=== PATIENT | male | born 1960 | race Caucasian/White ===

== ENCOUNTER 2023-03-16 14:39 | Emergency (ER) | payer BC, MEDICARE ==
[2023-03-16 15:00] VITALS: TEMP 97.7
[2023-03-16 15:41] LABS: Absolute Neutrophil Ct (ANC) 5.16 x10^3/uL (1.4-6.9); BASOPHIL % 0.3 % (0.0-0.4); Basophil (Absolute #) 0.02 x10^3/uL (0-0.4); Eosinophil % 3.3 % (0.00-5.0); Eosinophil (Absolute #) 0.26 x10^3/uL (0-0.5); Hematocrit 41.4 % (42-50); IMMATURE GRAN # 0.02 x10^3u/L (0.00-0.03); IMMATURE GRAN % 0.3 % (0.00-0.4); Lymphocyte (Absolute #) 1.76 x10^3/uL (1.0-4.6); Lymphocytes % 22.6 % (24.0-44.0); Mean Cell Volume 83.8 fL (78-100); Mean Corpuscular Hemoglobin 24.3 pg (26-32); Monocyte (Absolute #) 0.58 x10^3/uL (0.0-1.3); Monocytes % 7.4 % (0.0-12.0); Neutrophil % 66.1 % (36.0-66.0); Platelet Count 313 x10^3/uL (150-450); Red Blood Count 4.94 x10^6/uL (4.1-5.6); Red Cell Distribution Width 24.1 % (11.5-14.0); White Blood Count 7.8 x10^3/uL (4.0-10.5)
[2023-03-16 15:49] LABS: Appearance Clear (Clear); Bacteria None Seen /HPF (None Seen); Bilirubin Negative (Negative); Blood Negative (Negative); Epithelial Cells None Seen /HPF (None Seen); Glucose, Urine Negative (Negative); Hyaline Casts NONE SEEN /LPF (0-2); Ketones Negative (Negative); Leukocyte Esterase Negative (Negative); Nitrite Negative (Negative); Protein,Urine Dip Negative (Negative); RBC 0-2 /HPF (0-5); Specific Gravity <=1.005 (1.005-1.030); Urobilinogen 0.2 mg/dL (0.2); WBC 0-2 /HPF (0-5)
[2023-03-16 15:51] LABS: ADD URINE CULTURE? NO (NO)
[2023-03-16 15:53] LABS: ALBUMIN 4.3 g/dL (3.5-5.0); ALKALINE PHOSPHATASE 108 U/L (38-126); ANION GAP 15.8 MEQ/L (5-15); BLOOD UREA NITROGEN 11 mg/dL (9-20); CHLORIDE 102 mmol/L (98-107); Calcium 8.8 mg/dL (8.4-10.2); Carbon Dioxide 26 mmol/L (22-30); Creatinine 1 0.86 mg/dL (0.66-1.25); EST GLOMERULAR FILTRATION RATE > 60.0 ML/MIN; Glucose 131 mg/dL (74-106); Potassium 3.5 mmol/L (3.5-5.1); SGOT/AST 30 U/L (17-59); SGPT/ALT 39 U/L (0-50); SODIUM 140 mmol/L (137-145); Total Protein 6.9 g/dL (6.3-8.2)
[2023-03-16 15:54] LABS: INR 1.03 (0.8-3.0); PROTIME 11.2 SECONDS (9.4-12.5); PTT 25.3 SECONDS (25.1-36.5)
[2023-03-16 16:04] LABS: Slide Review 1 YES
[2023-03-16 16:11] LABS: ABO TYPING A; Antibody Screen NEGATIVE (NEGATIVE); RH TYPING POSITIVE
--- NOTE | 2023-03-16 16:41 | ERPHSYRPT ---
- History of Present Illness Time Seen by Provider: 03/16/23 15:00 Historian: patient, family Exam Limitations: no limitations Patient Subjective Stated Complaint: PT states "I had my followup for my upper and lower GI surgery this morning and they said everything was good and I went to the bar for a couple of beers and a burger and I started to spit up some blood then vomited up quite a bit of bright red blood." Triage Nursing Assessment: Pt presented alert and oriented X 3, skin pwd. Pt ambulates with an upright steady gait, able to speak in clear full sentences. PT in no apparent respiratory distress. Physician History: Patient is a 62-year-old white male who in 12 years ago had a gastric surgery he is still followed at [facility] he in fact saw his bariatric surgeon Dr. Chavira this morning and everything was good had been having some trouble with some GI bleeding intermittently and underwent upper and lower endoscopy on February 20 and everything looked normal he came home from his visit with Dr. Chavira today and had a episode of 4 episodes actually of vomiting bright red blood. He presented after the fourth time to the ER. Timing/Duration: today Modifying Factors: Improves With: vomiting Associated Symptoms: nausea Previous symptoms: same symptoms as today Allergies/Adverse Reactions: No Known Drug Allergies Allergy (Verified 10/20/14 06:59) Home Medications: Albuterol Sulfate [Ventolin Hfa] 18 gm IH DAILY PRN PRN 10/20/14 [History] Amlodipine Besylate 5 mg [Norvasc 5 mg] 5 mg PO DAILY 03/16/23 [History] Clopidogrel Bisulfate [Clopidogrel] 75 mg PO DAILY 03/16/23 [History] Ferrous Sulfate 325 mg PO DAILY 03/16/23 [History] Fluticasone/Umeclidin/Vilanter [Trelegy Ellipta 200-62.5-25] 1 puff IH DAILY 03/16/23 [History] Furosemide 40 mg [Lasix 40 MG] 40 mg PO DAILY 03/16/23 [History] Isosorbide Mononitrate 30 mg [Imdur 30 MG] 30 mg PO DAILY 03/16/23 [History] Metoprolol Succinate 25 mg Xl* [Toprol-Xl 25MG Tablets] 25 mg PO DAILY 03/16/23 [History] PANTOPRAZOLE 40 mg Tablet [Protonix 40MG Tablet] 40 mg PO QAM 03/16/23 [History] Hx Tetanus, Diphtheria Vaccination/Date Given: Yes Hx Influenza Vaccination/Date Given: Yes (2013) Hx Pneumococcal Vaccination/Date Given: Yes Immunizations Up to Date: Yes Travel Risk - International Travel Have you traveled outside of the country in past 3 weeks: No - Coronavirus Screening Are you exhibiting any of the following symptoms?: No Close contact with a COVID-19 positive Pt in past 14-21 Days: No - Vaccine Status Have you recieved a Covid-19 vaccination: Yes [employer]: Moderna - Vaccination Dates Date of 2cond Vaccination (if applicable): 2020 - Review of Systems Constitutional: No Fever, No Chills Eyes: No Symptoms Ears, Nose, & Throat: No Symptoms Respiratory: No Cough, No Dyspnea Cardiac: No Chest Pain, No Edema, No Syncope Abdominal/Gastrointestinal: Nausea, Vomiting, Hematemesis, No Abdominal Pain, No Diarrhea Genitourinary Symptoms: No Dysuria Musculoskeletal: No Back Pain, No Neck Pain Skin: No Rash Neurological: No Dizziness, No Focal Weakness, No Sensory Changes Psychological: No Symptoms Endocrine: No Symptoms All Other Systems: Reviewed and Negative - Past Medical History Pertinent Past Medical History: Yes Neurological History: No Pertinent History ENT History: No Pertinent History Cardiac History: Angina, Coronary Artery Disease, Hypertension Respiratory History: Asthma Endocrine Medical History: No Pertinent History Musculoskeletal History: Fractures GI Medical History: Stomach Cancer History: No Pertinent History Psycho-Social History: No Pertinent History Male Reproductive Disorders: No Pertinent History Other Medical History: B carpal tunnel surgery - Past Surgical History Past Surgical History: Yes Neuro Surgical History: No Pertinent History Cardiac: No Pertinent History Respiratory: No Pertinent History Gastrointestinal: Cholecystectomy Genitourinary: No Pertinent History Musculoskeletal: Orthopedic Surgery Male Surgical History: No Pertinent History Other Surgical History: BARIATRIC SURGERY. Knee scope times 2. upper and lower GI - Social History Smoking Status: Never smoker Exposure to second hand smoke: No Drug Use: none Patient Lives Alone: No - Nursing Vital Signs Nursing Vital Signs: Initial Vital Signs Temperature 97.7 F 03/16/23 14:53 Pulse Rate 72 03/16/23 14:53 Respiratory Rate 20 03/16/23 14:53 Blood Pressure 123/90 03/16/23 14:53 O2 Sat by Pulse Oximetry 95 03/16/23 14:53 Pain Scale Pain Intensity 0 - Physical Exam General Appearance: no apparent distress, alert Eye Exam: PERRL/EOMI, eyes nml inspection Ears, Nose, Throat Exam: normal ENT inspection, pharynx normal, moist mucous membranes Neck Exam: normal inspection, non-tender, supple, full range of motion Respiratory Exam: normal breath sounds, lungs clear, No respiratory distress Cardiovascular Exam: regular rate/rhythm, normal heart sounds Gastrointestinal/Abdomen Exam: soft, No tenderness, No mass Back Exam: normal inspection, normal range of motion, No CVA tenderness, No vertebral tenderness Extremity Exam: normal inspection, normal range of motion, pelvis stable Neurologic Exam: alert, oriented x 3, cooperative, normal mood/affect, nml cerebellar function, sensation nml, No motor deficits Skin Exam: normal color, warm, dry SpO2: 98 - Course Nursing assessment & vital signs reviewed: Yes Ordered Tests: Active Orders 24 hr Category Date Time Status CBC W DIFF Stat Lab 03/16/23 15:08 Completed CMP Stat Lab 03/16/23 15:08 Completed PROTIME WITH INR Stat Lab 03/16/23 15:08 Completed PTT Stat Lab 03/16/23 15:08 Completed UA W/RFX UR CULTURE Stat Lab 03/16/23 15:17 Completed Lab/Rad Data: Laboratory Result Diagrams 03/16/23 15:08 03/16/23 15:08 Laboratory Results 03/16/23 03/16/23 03/16/23 Range/Units 15:17 15:08 15:08 WBC (4.0-10.5) x10^3/uL RBC (4.1-5.6) x10^6/uL Hgb (12.5-18.0) g/dL Hct (42-50) % MCV (78-100) fL MCH (26-32) pg MCHC (32-36) g/dL RDW (11.5-14.0) % Plt Count (150-450) x10^3/uL MPV (7.5-11.0) fL Gran % (36.0-66.0) % Immature Gran % (Auto) (0.00-0.4) % Nucleat RBC Rel Count (0.00-0.1) % Eos # (Auto) (0-0.5) x10^3/uL Immature Gran # (Auto) (0.00-0.03) x10^3u/L Absolute Lymphs (auto) (1.0-4.6) x10^3/uL Absolute Monos (auto) (0.0-1.3) x10^3/uL Absolute Nucleated RBC (0.00-0.01) x10^3u/L Lymphocytes % (24.0-44.0) % Monocytes % (0.0-12.0) % Eosinophils % (0.00-5.0) % Basophils % (0.0-0.4) % Absolute Granulocytes (1.4-6.9) x10^3/uL Basophils # (0-0.4) x10^3/uL PT 11.2 (9.4-12.5) SECONDS INR 1.03 (0.8-3.0) APTT 25.3 (25.1-36.5) SECONDS Sodium (137-145) mmol/L Potassium (3.5-5.1) mmol/L Chloride (98-107) mmol/L Carbon Dioxide (22-30) mmol/L Anion Gap (5-15) MEQ/L BUN (9-20) mg/dL Creatinine (0.66-1.25) mg/dL Estimated GFR ML/MIN Glucose (74-106) mg/dL Calcium (8.4-10.2) mg/dL Total Bilirubin (0.2-1.3) mg/dL AST (17-59) U/L ALT (0-50) U/L Alkaline Phosphatase (38-126) U/L Serum Total Protein (6.3-8.2) g/dL Albumin (3.5-5.0) g/dL Urine Color Yellow (Yellow) Urine Appearance Clear (Clear) Urine pH 6.0 (4.6-8.0) Ur Specific [place] <=1.005 (1.005-1.030) Urine Protein Negative (Negative) Urine Glucose (UA) Negative (Negative) mg/dL Urine Ketones Negative (Negative) Urine Blood Negative (Negative) Urine Nitrite Negative (Negative) Urine Bilirubin Negative (Negative) Urine Urobilinogen 0.2 (0.2) mg/dL Ur Leukocyte Esterase Negative (Negative) U Hyaline Cast (Auto) NONE SEEN (0-2) /LPF Urine Microscopic RBC 0-2 (0-5) /HPF Urine Microscopic WBC 0-2 (0-5) /HPF Ur Epithelial Cells None Seen (None Seen) /HPF Urine Bacteria None Seen (None Seen) /HPF Urine Culture Reflexed NO (NO) Slides for Path Review ABO Group A Rh Factor POSITIVE Antibody Screen NEGATIVE (NEGATIVE) 03/16/23 03/16/23 Range/Units 15:08 15:08 WBC 7.8 (4.0-10.5) x10^3/uL RBC 4.94 (4.1-5.6) x10^6/uL Hgb 12.0 L (12.5-18.0) g/dL Hct 41.4 L (42-50) % MCV 83.8 (78-100) fL MCH 24.3 L (26-32) pg MCHC 29.0 L (32-36) g/dL RDW 24.1 H (11.5-14.0) % Plt Count 313 (150-450) x10^3/uL MPV 9.0 (7.5-11.0) fL Gran % 66.1 H (36.0-66.0) % Immature Gran % (Auto) 0.3 (0.00-0.4) % Nucleat RBC Rel Count 0.0 (0.00-0.1) % Eos # (Auto) 0.26 (0-0.5) x10^3/uL Immature Gran # (Auto) 0.02 (0.00-0.03) x10^3u/L Absolute Lymphs (auto) 1.76 (1.0-4.6) x10^3/uL Absolute Monos (auto) 0.58 (0.0-1.3) x10^3/uL Absolute Nucleated RBC 0.00 (0.00-0.01) x10^3u/L Lymphocytes % 22.6 L (24.0-44.0) % Monocytes % 7.4 (0.0-12.0) % Eosinophils % 3.3 (0.00-5.0) % Basophils % 0.3 (0.0-0.4) % Absolute Granulocytes 5.16 (1.4-6.9) x10^3/uL Basophils # 0.02 (0-0.4) x10^3/uL PT (9.4-12.5) SECONDS INR (0.8-3.0) APTT (25.1-36.5) SECONDS Sodium 140 (137-145) mmol/L Potassium 3.5 (3.5-5.1) mmol/L Chloride 102 (98-107) mmol/L Carbon Dioxide 26 (22-30) mmol/L Anion Gap 15.8 H (5-15) MEQ/L BUN 11 (9-20) mg/dL Creatinine 0.86 (0.66-1.25) mg/dL Estimated GFR > 60.0 ML/MIN Glucose 131 H (74-106) mg/dL Calcium 8.8 (8.4-10.2) mg/dL Total Bilirubin 0.40 (0.2-1.3) mg/dL AST 30 (17-59) U/L ALT 39 (0-50) U/L Alkaline Phosphatase 108 (38-126) U/L Serum Total Protein 6.9 (6.3-8.2) g/dL Albumin 4.3 (3.5-5.0) g/dL Urine Color (Yellow) Urine Appearance (Clear) Urine pH (4.6-8.0) Ur Specific [place] (1.005-1.030) Urine Protein (Negative) Urine Glucose (UA) (Negative) mg/dL Urine Ketones (Negative) Urine Blood (Negative) Urine Nitrite (Negative) Urine Bilirubin (Negative) Urine Urobilinogen (0.2) mg/dL Ur Leukocyte Esterase (Negative) U Hyaline Cast (Auto) (0-2) /LPF Urine Microscopic RBC (0-5) /HPF Urine Microscopic WBC (0-5) /HPF Ur Epithelial Cells (None Seen) /HPF Urine Bacteria (None Seen) /HPF Urine Culture Reflexed (NO) Slides for Path Review YES ABO Group Rh Factor Antibody Screen (NEGATIVE) - Progress Progress: improved Progress Note: 03/16/23 16:38 Patient was in the ER nearly 2 hours with no further vomiting or hematemesis. We did contact his surgeons continuity manager JOSE Garcia at [facility] who discussed the situation with him and encouraged him to come there if he had further bleeding. He is to hold his Eliquis till in the morning and after he talks with his doctors in [place]. Medical Desision Making - Independent Historian Additional History obtained from: Spouse - Discussion of managment Care discussed with:: specialist ([facility]) Reviewed:: Test results Agreed on:: Treatment plan Will see patient: In office - Diagnostic Testing Diagnostic test were ordered, analyzed, and reviewed by me: Yes Radiological Interpretation: Reviewed by me - Risk of complications Low Risk: Low risk of morbidity from additional dx testing or treatment - Departure Departure Disposition: Home Clinical Impression: Hematemesis Condition: Stable Critical Care Time: No Instructions: Gastrointestinal Bleeding (DC)
[2023-03-16 16:52] VITALS: BP 106/60; PULSE 78; RESP 18; O2SAT 97
== END 2023-03-16 16:52 | disposition home or self-care (01) ==
LOC: ED 14:39
DX: K92.0 Hematemesis (principal); I10 Essential (primary) hypertension; Z98.84 Bariatric surgery status; Z79.01 Long term (current) use of anticoagulants; Z79.02 Long term (current) use of antithrombotics/antiplatelets; Z79.899 Other long term (current) drug therapy
CPT/HCPCS: 36415; 80053; 81001; 85025; 85610; 85730; 86850; 86900; 86901; 99283

== ENCOUNTER 2024-04-15 17:31 | Emergency (ER) | payer BC, MEDICARE ==
--- NOTE | 2024-04-15 17:43 | ERPHSYRPT ---
- History of Present Illness Time Seen by Provider: 04/15/24 17:42 Source: patient Exam Limitations: no limitations Physician History: This is a right handed 63-year-old overweight white male patient of Dr. Dickey who arrives by private vehicle escorted by patient's son after suffering right thumb injury while using a log splitter. Patient tetanus status is unknown. Patient has a history of gastroesophageal reflux disease, hypertension and asthma. He does take a baby aspirin a day. Patient's right thumb is obviously degloved distally and with exposed distal phalanx bone. Occurred: just prior to arrival Method of Injury: other (Crushed in a log splitter) Quality: constant, aching, throbbing Severity of Pain-Max: moderate Severity of Pain-Current: moderate Extremities Pain Location: thumb: right Allergies/Adverse Reactions: No Known Drug Allergies Allergy (Verified 04/15/24 17:46) Home Medications: Albuterol Sulfate [Ventolin Hfa] 18 gm IH DAILY PRN PRN 10/20/14 [History] Amlodipine Besylate 5 mg [Norvasc 5 mg] 5 mg PO DAILY 03/16/23 [History] Clopidogrel Bisulfate [Clopidogrel] 75 mg PO DAILY 03/16/23 [History] Ferrous Sulfate 325 mg PO DAILY 03/16/23 [History] Fluticasone/Umeclidin/Vilanter [Trelegy Ellipta 200-62.5-25] 1 puff IH DAILY 03/16/23 [History] Furosemide 40 mg [Lasix 40 MG] 40 mg PO DAILY 03/16/23 [History] Isosorbide Mononitrate 30 mg [Imdur 30 MG] 30 mg PO DAILY 03/16/23 [History] Metoprolol Succinate 25 mg Xl* [Toprol-Xl 25MG Tablets] 25 mg PO DAILY 03/16/23 [History] PANTOPRAZOLE 40 mg Tablet [Protonix 40MG Tablet] 40 mg PO QAM 03/16/23 [History] Hx Tetanus, Diphtheria Vaccination/Date Given: Yes Hx Influenza Vaccination/Date Given: Yes (2013) Hx Pneumococcal Vaccination/Date Given: Yes Travel Risk - International Travel Have you traveled outside of the country in past 3 weeks: No - Emerging Infectious Disease Are you exhibiting symptoms associated with any current EIDs: No - Review of Systems Constitutional: No Symptoms Eyes: No Symptoms Ears, Nose, & Throat: No Symptoms Respiratory: No Symptoms Cardiac: No Symptoms Abdominal/Gastrointestinal: No Symptoms Genitourinary Symptoms: No Symptoms Musculoskeletal: Deformity (Right thumb), Injury (Right thumb) Skin: No Symptoms Neurological: No Symptoms Psychological: No Symptoms Endocrine: No Symptoms Hematologic/Lymphatic: No Symptoms Immunological/Allergic: No Symptoms All Other Systems: Reviewed and Negative - Past Medical History Pertinent Past Medical History: Yes Neurological History: No Pertinent History ENT History: No Pertinent History Cardiac History: Angina, Coronary Artery Disease, Hypertension Respiratory History: Asthma Endocrine Medical History: No Pertinent History Musculoskeletal History: Fractures GI Medical History: Stomach Cancer History: No Pertinent History Psycho-Social History: No Pertinent History Male Reproductive Disorders: No Pertinent History Other Medical History: B carpal tunnel surgery - Past Surgical History Past Surgical History: Yes Neuro Surgical History: No Pertinent History Cardiac: No Pertinent History Respiratory: No Pertinent History Gastrointestinal: Cholecystectomy Genitourinary: No Pertinent History Musculoskeletal: Orthopedic Surgery Male Surgical History: No Pertinent History Other Surgical History: BARIATRIC SURGERY. Knee scope times 2. upper and lower GI - Social History Smoking Status: Never smoker Exposure to second hand smoke: No Drug Use: none Patient Lives Alone: No - Nursing Vital Signs Nursing Vital Signs: Initial Vital Signs Temperature 97.0 F 04/15/24 17:45 Pulse Rate 78 04/15/24 17:45 Respiratory Rate 18 04/15/24 17:45 Blood Pressure 139/109 04/15/24 17:45 O2 Sat by Pulse Oximetry 96 04/15/24 17:45 Pain Scale Pain Intensity 4 - Physical Exam General Appearance: no apparent distress, alert, anxiety, obese Eyes, Ears, Nose, Throat Exam: normal ENT inspection, moist mucous membranes Neck Exam: normal inspection, non-tender, supple, full range of motion Cardiovascular/Respiratory Exam: chest non-tender, no respiratory distress Abdominal Exam: non-tender Back Exam: normal inspection, normal range of motion, No CVA tenderness, No vertebral tenderness Shoulder Exam: normal inspection, non-tender, no evidence of injury, normal ROM Elbow/Forearm Exam: normal inspection, non-tender, no evidence of injury, normal ROM Wrist Exam: normal inspection, non-tender, no evidence of injury, normal ROM Hand Exam: normal ROM, deformity (Right thumb with exposed bone and obvious tissue loss with degloved skin and complete avulsion of the nail), laceration, soft tissue tenderness (Right thumb) - Course Nursing assessment & vital signs reviewed: Yes Ordered Tests: Active Orders 24 hr Category Date Time Status IV Insertion STAT Care 04/15/24 18:13 Active FINGER(S) Stat Exams 04/15/24 17:41 Taken BMP Stat Lab 04/15/24 18:13 Ordered CBC W DIFF Stat Lab 04/15/24 18:30 Completed Medication Summary Generic Name Dose Route Start Last Admin Trade Name Freq PRN Reason Stop Dose Admin Ceftriaxone Sodium 1 gm in 100 mls @ 200 mls/hr 04/15/24 18:14 Rocephin 1 Gm / 100 Ml Nacl IV 04/15/24 18:43 STAT ONE Discontinued Medications Generic Name Dose Route Start Last Admin Trade Name Freq PRN Reason Stop Dose Admin Diphtheria/Tetanus/Acell Pertussis 0.5 ml 04/15/24 18:13 Tdap --Diph,Pertuss(Acell),Tet Vac/Pf 0.5 Ml Vial IM 04/15/24 18:14 .ONCE ONE Morphine Sulfate 4 mg 04/15/24 18:14 Morphine Sulfate 4 Mg/Ml Injection IV 04/15/24 18:15 STAT ONE Ondansetron HCl 4 mg 04/15/24 18:14 Ondansetron Hcl 4 Mg/2 Ml Vial IV 04/15/24 18:15 STAT ONE Lab/Rad Data: Laboratory Result Diagrams 04/15/24 18:30 Laboratory Results 04/15/24 Range/Units 18:30 WBC 7.6 (4.23-9.07) x10^3/uL RBC 4.71 (4.63-6.08) x10^6/uL Hgb 15.0 (13.7-17.5) g/dL Hct 44.9 (40.1-51.0) % MCV 95.3 H (79.0-92.2) fL MCH 31.8 (25.7-32.2) pg MCHC 33.4 (32.3-36.5) g/dL RDW 12.8 (11.6-14.4) % Plt Count 235 (163-337) x10^3/uL MPV 9.0 L (9.4-12.4) fL Gran % 66.3 (34.0-67.9) % Immature Gran % (Auto) 0.3 (0.001-0.429) % Nucleat RBC Rel Count 0.0 (0.00-0.2) % Eos # (Auto) 0.25 (0.04-0.54) x10^3/uL Immature Gran # (Auto) 0.02 (0.001-0.031) x10^3u/L Absolute Lymphs (auto) 1.61 (1.32-3.57) x10^3/uL Absolute Monos (auto) 0.63 (0.30-0.82) x10^3/uL Absolute Nucleated RBC 0.00 (0.00-0.012) x10^3u/L Lymphocytes % 21.3 L (21.8-53.1) % Monocytes % 8.3 (5.3-12.2) % Eosinophils % 3.3 (0.8-7.0) % Basophils % 0.5 (0.2-1.2) % Absolute Granulocytes 5.01 (1.78-5.38) x10^3/uL Basophils # 0.04 (0.01-0.08) x10^3/uL - Progress Progress: improved, pain not gone completely Progress Note: 04/15/24 18:46 My medical decision making of the assignment of low to moderate complexity of this patient's medical issue today is based on review of the patient's past medical history, review of the patient's medication list, reviewed patient drug allergy list, history present illness and physical findings on examination. The workup in this patient includes x-ray of the patient's right hand with specific attention to the right first digit (thumb). I contacted directly, Dr. Chacon, hand surgeon on-call for [facility] in [facility]. I reviewed the patient history, the type of injury and the findings on the x-ray of the right hand. In addition, we sent the x-rays to the cloud for [facility]. The plan is to clean the site, provide the patient with intravenous antibiotics and pain medicine intravenously in the emergency department. Next cover the wound with either Xeroform or Vaseline gauze, nonstick gauze and 4 x 4's followed by a bulky dressing and splint. Patient may then be discharged to home with instructions to contact his office (phone number provided) [phone] at 8 AM on 04/18/2024. Patient also will have Keflex antibiotics and [place] 5/325 medication remotely sent to his pharmacy. 04/15/24 18:49 I interpreted the preliminary report of this patient's x-ray of the right thumb which shows obvious tissue loss/avulsion with what appears to be a tuft fracture and to avulsion fractures at the base of the first distal phalanx over the right hand Counseled pt/family regarding: diagnosis, need for follow-up, rad results Medical Desision Making - Independent Historian Additional History obtained from: Spouse, Family - Diagnostic Testing Diagnostic test were ordered, analyzed, and reviewed by me: Yes Radiological Interpretation: Interpreted by me - Risk of complications The pt has a mod risk of morbidity or mortality based on: Need for prescription drug management - Departure Clinical Impression: Open fracture of right thumb, Avulsion of nail Condition: Stable Critical Care Time: No Referrals: CHRISTINA DICKEY NP [Primary Care Provider] - Follow up/PCP as directed Additional Instructions: Nothing to eat or drink after midnight on Thursday evening. It might be a possibility of surgery as early as 04/18/2024 but more likely 04/19/2024. Call Dr. Chacon's office (hand surgeon) at [facility] bone and joint clinic at 8 AM [phone]. Keep dressing in place. No need for ice pack. Keep the right hand/arm elevated above the level of your heart. Take your antibiotics and pain medicine as prescribed. Prescriptions: Hydrocodone/APAP 5/325 [[place] 5/325 mg] 1 each PO Q8H PRN PRN #10 tablet MDD 3 PRN Reason: Pain Cephalexin Mh 500 mg [Keflex 500 mg] 500 mg PO TID #21 cap
[2024-04-15 17:46] VITALS: BP 139/109; PULSE 78; RESP 18; TEMP 97; O2SAT 96
[2024-04-15 18:35] LABS: Absolute Neutrophil Ct (ANC) 5.01 x10^3/uL (1.78-5.38); BASOPHIL % 0.5 % (0.2-1.2); Basophil (Absolute #) 0.04 x10^3/uL (0.01-0.08); Eosinophil % 3.3 % (0.8-7.0); Eosinophil (Absolute #) 0.25 x10^3/uL (0.04-0.54); Hematocrit 44.9 % (40.1-51.0); IMMATURE GRAN # 0.02 x10^3u/L (0.001-0.031); IMMATURE GRAN % 0.3 % (0.001-0.429); Lymphocyte (Absolute #) 1.61 x10^3/uL (1.32-3.57); Lymphocytes % 21.3 % (21.8-53.1); Mean Cell Volume 95.3 fL (79.0-92.2); Mean Corpuscular Hemoglobin 31.8 pg (25.7-32.2); Mean Corpuscular Hgb Concent. 33.4 g/dL (32.3-36.5); Monocyte (Absolute #) 0.63 x10^3/uL (0.30-0.82); Monocytes % 8.3 % (5.3-12.2); Neutrophil % 66.3 % (34.0-67.9); Platelet Count 235 x10^3/uL (163-337); Red Blood Count 4.71 x10^6/uL (4.63-6.08); Red Cell Distribution Width 12.8 % (11.6-14.4); White Blood Count 7.6 x10^3/uL (4.23-9.07)
[2024-04-15] MEDS ORDERED: ROCEPHIN 1 GM / 100 ML NaCl 1 GM/100 ML IVPB IV ONE (18:36)
[2024-04-15] MEDS ORDERED: Zofran 4 MG/2 ML VIAL ONE (18:36)
[2024-04-15] MEDS ORDERED: MORPHINE SULFATE 4 MG INJ ONE (18:36)
[2024-04-15] MEDS ORDERED: Adacel Vial IM ONE (18:37)
[2024-04-15] MEDS: Zofran 4 MG/2 ML VIAL IV ONE (18:38)
[2024-04-15] MEDS: MORPHINE SULFATE 4 MG INJ IV ONE (18:41)
[2024-04-15] MEDS: Adacel Vial IM ONE (18:47)
[2024-04-15 18:48] LABS: ANION GAP 12.3 MEQ/L (5-15); Calcium 8.8 mg/dL (8.4-10.2); Creatinine 1 0.76 mg/dL (0.66-1.25); EST GLOMERULAR FILTRATION RATE 101.6 ML/MIN; Potassium 3.6 mmol/L (3.5-5.1)
[2024-04-15] MEDS: ROCEPHIN 1 GM / 100 ML NaCl 1 GM/100 ML IVPB IV ONE (18:51)
--- NOTE | 2024-04-15 22:36 | XRAY ---
Indication: Amputation. Comparison: None 3 view left thumb demonstrates moderate soft tissue amputation/laceration distal phalanx and underlying bony tuft amputation. No other bony, articular, or soft tissue abnormalities.
== END 2024-04-15 19:42 | disposition home or self-care (01) ==
LOC: ED 17:31
DX: S62.501B Fracture of unspecified phalanx of right thumb, initial encounter for open fracture (principal); S61.101A Unspecified open wound of right thumb with damage to nail, initial encounter; W31.89XA Contact with other specified machinery, initial encounter; I10 Essential (primary) hypertension; Z79.891 Long term (current) use of opiate analgesic; Z79.02 Long term (current) use of antithrombotics/antiplatelets; Z79.899 Other long term (current) drug therapy; Z23 Encounter for immunization
CPT/HCPCS: 36000; 36415; 73140; 80048; 85025; 90471; 90715; 96374; 96375; 99284; J0696; J2270; J2405

== ENCOUNTER 2024-11-09 10:11 | Emergency (ER) | payer BC, MEDICARE ==
--- NOTE | 2024-11-09 10:15 | ERPHSYRPT ---
- History of Present Illness Time Seen by Provider: 11/09/24 10:15 Source: patient, family Exam Limitations: no limitations Physician History: This is an obese 64-year-old white male patient of nurse practitioner Keli who arrives by private vehicle. Patient drove himself to the emergency department. Patient has had intermittent dizziness for quite some time. He has been treated with antibiotics and steroids for sinusitis, mastoiditis, and ear infections without much improvement in his intermittent dizziness. On the Thursday prior to this admission (4 days ago) there was a sudden onset of worse dizziness with associated nausea but no vomiting. Patient is being followed by business objects architect Gosia Matos. He was seen by his business objects architect/cardiology nurse practitioner within a month ago and everything looked fine per his report. On 06/17/2023, the patient underwent bilateral carotid ultrasounds which showed minimal calcified plaques. Vessels were widely patent. Patient has had 2 negative cardiac catheterizations per his report. He does have chronic intermittent angina. He has a history of asthma, hypertension, gastroesophageal reflux disease and obesity. He is here today because of the dizziness. Patient's NIH score is 0 Timing/Duration: day(s) (4), worse Severity: mild Character of Deficits: none (To moderate) Deficits: no difficulties (Patient drove himself to the emergency department and walked to the emergency department room without any difficulty) Baseline/Normal Cognition: alert oriented x 3 Current Cognition: alert oriented x 3 Baseline Gait: walks w/o assistance Associated Symptoms: denies symptoms Allergies/Adverse Reactions: No Known Drug Allergies Allergy (Verified 11/09/24 10:36) Home Medications: Albuterol Sulfate [Ventolin Hfa] 18 gm IH DAILY PRN PRN 10/20/14 [History] Amlodipine Besylate 5 mg [Norvasc 5 mg] 5 mg PO DAILY 03/16/23 [History] Clopidogrel Bisulfate [Clopidogrel] 75 mg PO DAILY 03/16/23 [History] Fluticasone/Umeclidin/Vilanter [Trelegy Ellipta 200-62.5-25] 1 puff IH DAILY 03/16/23 [History] Furosemide 40 mg [Lasix 40 MG] 40 mg PO DAILY 03/16/23 [History] Isosorbide Mononitrate 30 mg [Imdur 30 MG] 30 mg PO DAILY 03/16/23 [History] Metoprolol Succinate 25 mg Xl* [Toprol-Xl 25MG Tablets] 25 mg PO DAILY 03/16/23 [History] PANTOPRAZOLE 40 mg Tablet [Protonix 40MG Tablet] 40 mg PO QAM 03/16/23 [History] Aspirin EC 81 mg [Ecotrin 81 mg] 81 mg PO DAILY 11/09/24 [History] Escitalopram Oxalate 5 mg PO DAILY 11/09/24 [History] Fexofenadine HCl [Allergy Relief] 180 mg PO DAILY 11/09/24 [History] Fluticasone Propionate 1 spray INTRANASAL DAILY 11/09/24 [History] Meloxicam 15 mg [Meloxicam 15 MG] 15 mg PO DAILY 11/09/24 [History] Montelukast Sodium 10 mg [Singulair 10 MG] 10 mg PO DAILY 11/09/24 [History] Tirzepatide [Zepbound] 7.5 mg SQ WEEKLY 11/09/24 [History] Hx Tetanus, Diphtheria Vaccination/Date Given: Yes Hx Influenza Vaccination/Date Given: Yes (2013) Hx Pneumococcal Vaccination/Date Given: Yes Travel Risk - International Travel Have you traveled outside of the country in past 3 weeks: No - Emerging Infectious Disease Are you exhibiting symptoms associated with any current EIDs: No - Review of Systems Constitutional: No Symptoms Eyes: No Symptoms Ears, Nose, & Throat: No Symptoms Respiratory: No Symptoms Cardiac: Chest Pain (Chronic intermittent. Patient has a history of chronic angina) Abdominal/Gastrointestinal: No Symptoms Genitourinary Symptoms: No Symptoms Musculoskeletal: No Symptoms Skin: No Symptoms Neurological: Dizziness Psychological: No Symptoms Endocrine: No Symptoms Hematologic/Lymphatic: No Symptoms Immunological/Allergic: No Symptoms All Other Systems: Reviewed and Negative - Past Medical History Pertinent Past Medical History: Yes Neurological History: No Pertinent History ENT History: No Pertinent History Cardiac History: Angina, Coronary Artery Disease, Hypertension Respiratory History: Asthma Endocrine Medical History: No Pertinent History Musculoskeletal History: Fractures GI Medical History: Stomach Cancer History: No Pertinent History Psycho-Social History: No Pertinent History Male Reproductive Disorders: No Pertinent History Other Medical History: B carpal tunnel surgery - Past Surgical History Past Surgical History: Yes Neuro Surgical History: No Pertinent History Cardiac: No Pertinent History Respiratory: No Pertinent History Gastrointestinal: Cholecystectomy Genitourinary: No Pertinent History Musculoskeletal: Orthopedic Surgery Male Surgical History: No Pertinent History Other Surgical History: BARIATRIC SURGERY. Knee scope times 2. upper and lower GI - Social History Smoking Status: Never smoker Exposure to second hand smoke: No Drug Use: none Patient Lives Alone: No - Social Determinants of Health Will the patient participate in the screening: Declined to provide - Nursing Vital Signs Nursing Vital Signs: Initial Vital Signs Temperature 98 F 11/09/24 10:34 Pulse Rate 64 11/09/24 10:34 Respiratory Rate 20 11/09/24 10:34 Blood Pressure 151/78 11/09/24 10:34 O2 Sat by Pulse Oximetry 94 L 11/09/24 10:34 Pain Scale Pain Intensity 0 - Radha Coma Scale Best Eye Response ([place]): (4) open spontaneously Best Verbal Response ([place]): (5) oriented Best Motor Response ([place]): (6) obeys commands [place] Total: 15 - Physical Exam General Appearance: no apparent distress, alert, obese Eye Exam: bilateral eye: normal inspection, PERRL, EOMI Ears, Nose, Throat Exam: normal ENT inspection, TMs normal, pharynx normal, moist mucous membranes Neck Exam: normal inspection, non-tender, supple, full range of motion Respiratory: normal breath sounds, lungs clear, airway intact, No chest tenderness, No respiratory distress Cardiovascular: regular rate/rhythm, normal heart sounds, normal peripheral pulses Gastrointestinal: soft, normal bowel sounds, No tenderness Rectal Exam: not done Back Exam: normal inspection, normal range of motion, No CVA tenderness, No vertebral tenderness Extremity Exam: normal inspection, normal range of motion, pelvis stable Mental Status: alert, oriented x 3, cooperative shed hand Exam: normal hearing, normal speech, PERRL, tongue midline Coordination/Gait: normal gait, normal cerebellar function Motor/Sensory: no motor deficit, no sensory deficit, no pronator drift Skin Exam: normal color, warm, dry SpO2 Interpretation: borderline oxygenation O2 Delivery: Room Air - Course Nursing assessment & vital signs reviewed: Yes EKG Interpreted by Me: RATE (65), Sinus Rhythm, NORMAL AXIS, NORMAL INTERVALS, NORMAL QRS, Other (No acute ischemic changes on today's twelve-lead EKG. QTc is 409) Ordered Tests: Active Orders 24 hr Category Date Time Status Compact Assembler STAT Care 11/09/24 10:50 Active EKG-ER Only STAT Care 11/09/24 10:48 Active IV Insertion STAT Care 11/09/24 10:48 Active HEAD WITHOUT CONTRAST [CT] Stat Exams 11/09/24 10:49 Completed CBC W DIFF Stat Lab 11/09/24 11:10 Completed CMP Stat Lab 11/09/24 11:10 Completed ETHYL ALCOHOL Stat Lab 11/09/24 11:10 Completed MAGNESIUM Stat Lab 11/09/24 11:10 Completed POCT GLUCOSE Stat Lab 11/09/24 10:57 Completed TROPONIN Q4H Lab 11/09/24 11:10 Completed TROPONIN Q4H Lab 11/09/24 15:00 Ordered TROPONIN Q4H Lab 11/09/24 19:00 Ordered UA W/RFX UR CULTURE Stat Lab 11/09/24 11:31 Completed Medication Summary Discontinued Medications Generic Name Dose Route Start Last Admin Trade Name Freq PRN Reason Stop Dose Admin Meclizine HCl 25 mg 11/09/24 10:48 11/09/24 11:25 Meclizine Hcl 25 Mg Tablet PO 11/09/24 10:49 25 mg STAT ONE Administration Meclizine HCl Confirm 11/09/24 11:23 Meclizine Hcl 25 Mg Tablet Administered 11/09/24 11:24 Dose 25 mg .ROUTE .STK-MED ONE Ondansetron HCl 4 mg 11/09/24 10:48 11/09/24 11:26 Ondansetron Hcl 4 Mg/2 Ml Vial IV 11/09/24 10:49 4 mg STAT ONE Administration Ondansetron HCl Confirm 11/09/24 11:23 Ondansetron Hcl 4 Mg/2 Ml Vial Administered 11/09/24 11:24 Dose 4 mg .ROUTE .STK-MED ONE Lab/Rad Data: Laboratory Result Diagrams 11/09/24 11:10 11/09/24 11:10 Laboratory Results 11/09/24 11/09/24 11/09/24 Range/Units 11:31 11:10 11:10 WBC (4.23-9.07) x10^3/uL RBC (4.63-6.08) x10^6/uL Hgb (13.7-17.5) g/dL Hct (40.1-51.0) % MCV (79.0-92.2) fL MCH (25.7-32.2) pg MCHC (32.3-36.5) g/dL RDW (11.6-14.4) % Plt Count (163-337) x10^3/uL MPV (9.4-12.4) fL Gran % (34.0-67.9) % Immature Gran % (Auto) (0.001-0.429) % Nucleat RBC Rel Count (0.00-0.2) % Eos # (Auto) (0.04-0.54) x10^3/uL Immature Gran # (Auto) (0.001-0.031) x10^3u/L Absolute Lymphs (auto) (1.32-3.57) x10^3/uL Absolute Monos (auto) (0.30-0.82) x10^3/uL Absolute Nucleated RBC (0.00-0.012) x10^3u/L Lymphocytes % (21.8-53.1) % Monocytes % (5.3-12.2) % Eosinophils % (0.8-7.0) % Basophils % (0.2-1.2) % Absolute Granulocytes (1.78-5.38) x10^3/uL Basophils # (0.01-0.08) x10^3/uL Sodium 140 (135-145) mmol/L Potassium 3.4 L (3.5-5.1) mmol/L Chloride 102 (98-107) mmol/L Carbon Dioxide 27 (22-30) mmol/L Anion Gap 13.2 (5-15) MEQ/L BUN 12 (9-20) mg/dL Creatinine 0.68 (0.66-1.25) mg/dL Estimated GFR 104.5 ML/MIN Glucose 98 (74-106) mg/dL POC Glucometer (74 to 106) mg/dL Calcium 8.8 (8.4-10.2) mg/dL Magnesium 1.8 (1.6-2.3) mg/dL Total Bilirubin 0.70 (0.2-1.3) mg/dL AST 49 (17-59) U/L ALT 55 H (0-50) U/L Alkaline Phosphatase 120 (38-126) U/L Troponin I < 0.012 (0.000-0.033) ng/mL Serum Total Protein 6.8 (6.3-8.2) g/dL Albumin 4.3 (3.5-5.0) g/dL Urine Color Yellow (Yellow) Urine Appearance Clear (Clear) Urine pH 5.0 (4.6-8.0) Ur Specific [place] 1.010 (1.005-1.030) Urine Protein Negative (Negative) Urine Glucose (UA) Negative (Negative) mg/dL Urine Ketones Negative (Negative) Urine Blood Negative (Negative) Urine Nitrite Negative (Negative) Urine Bilirubin Negative (Negative) Urine Urobilinogen 0.2 (0.2) mg/dL Ur Leukocyte Esterase Negative (Negative) U Hyaline Cast (Auto) NONE SEEN (0-2) /LPF Urine Microscopic RBC 0-2 (0-5) /HPF Urine Microscopic WBC 0-2 (0-5) /HPF Ur Epithelial Cells None Seen (None Seen) /HPF Urine Bacteria None Seen (None Seen) /HPF Urine Culture Reflexed NO (NO) Ethyl Alcohol < 10 (0-10) mg/dL 11/09/24 11/09/24 Range/Units 11:10 10:57 WBC 6.7 (4.23-9.07) x10^3/uL RBC 4.94 (4.63-6.08) x10^6/uL Hgb 15.9 (13.7-17.5) g/dL Hct 46.6 (40.1-51.0) % MCV 94.3 H (79.0-92.2) fL MCH 32.2 (25.7-32.2) pg MCHC 34.1 (32.3-36.5) g/dL RDW 12.8 (11.6-14.4) % Plt Count 204 (163-337) x10^3/uL MPV 9.3 L (9.4-12.4) fL Gran % 66.7 (34.0-67.9) % Immature Gran % (Auto) 0.3 (0.001-0.429) % Nucleat RBC Rel Count 0.0 (0.00-0.2) % Eos # (Auto) 0.23 (0.04-0.54) x10^3/uL Immature Gran # (Auto) 0.02 (0.001-0.031) x10^3u/L Absolute Lymphs (auto) 1.27 L (1.32-3.57) x10^3/uL Absolute Monos (auto) 0.70 (0.30-0.82) x10^3/uL Absolute Nucleated RBC 0.00 (0.00-0.012) x10^3u/L Lymphocytes % 18.9 L (21.8-53.1) % Monocytes % 10.4 (5.3-12.2) % Eosinophils % 3.4 (0.8-7.0) % Basophils % 0.3 (0.2-1.2) % Absolute Granulocytes 4.49 (1.78-5.38) x10^3/uL Basophils # 0.02 (0.01-0.08) x10^3/uL Sodium (135-145) mmol/L Potassium (3.5-5.1) mmol/L Chloride (98-107) mmol/L Carbon Dioxide (22-30) mmol/L Anion Gap (5-15) MEQ/L BUN (9-20) mg/dL Creatinine (0.66-1.25) mg/dL Estimated GFR ML/MIN Glucose (74-106) mg/dL POC Glucometer 95 (74 to 106) mg/dL Calcium (8.4-10.2) mg/dL Magnesium (1.6-2.3) mg/dL Total Bilirubin (0.2-1.3) mg/dL AST (17-59) U/L ALT (0-50) U/L Alkaline Phosphatase (38-126) U/L Troponin I (0.000-0.033) ng/mL Serum Total Protein (6.3-8.2) g/dL Albumin (3.5-5.0) g/dL Urine Color (Yellow) Urine Appearance (Clear) Urine pH (4.6-8.0) Ur Specific [place] (1.005-1.030) Urine Protein (Negative) Urine Glucose (UA) (Negative) mg/dL Urine Ketones (Negative) Urine Blood (Negative) Urine Nitrite (Negative) Urine Bilirubin (Negative) Urine Urobilinogen (0.2) mg/dL Ur Leukocyte Esterase (Negative) U Hyaline Cast (Auto) (0-2) /LPF Urine Microscopic RBC (0-5) /HPF Urine Microscopic WBC (0-5) /HPF Ur Epithelial Cells (None Seen) /HPF Urine Bacteria (None Seen) /HPF Urine Culture Reflexed (NO) Ethyl Alcohol (0-10) mg/dL - Progress Progress: unchanged Progress Note: 11/09/24 11:11 My medical decision making and the assignment of moderate complexity to this patient's medical issue today is based on review of the patient's past medical history, review of the patient's medication list, review of the patient's drug allergy list, history present illness and physical findings on examination. The workup today includes placement of a intravenous line, CBC, CMP, urinalysis, twelve-lead EKG, troponin level, magnesium level, CT scan of the head without contrast. Differential diagnosis includes but is not limited to acute intracranial abnormality, dehydration, urinary tract infection, electrolyte abnormalities, arrhythmia, myocardial infarction 11/09/24 12:05 I interpreted the patient's laboratory data results. Based on the laboratory data results, there are no acute, emergent medical issues. 11/09/24 12:08 The radiologist interpreted the CT scan of this patient's head. The impression states nonacute intracranial abnormality. The sinuses are visualized as well as the mastoid cells and they are clear. Counseled pt/family regarding: lab results, diagnosis, need for follow-up, rad results Medical Desision Making - Diagnostic Testing Diagnostic test were ordered, analyzed, and reviewed by me: Yes Radiological Interpretation: Reviewed by me, Teleradiologist Report - Risk of complications The pt has a mod risk of morbidity or mortality based on: Need for prescription drug management - Departure Departure Disposition: Home Clinical Impression: Dizziness Condition: Stable Critical Care Time: No Referrals: CHRISTINA GUSTAFSON NP [Primary Care Provider, [facility]] - Follow up/PCP as directed Additional Instructions: Drink plenty of clear liquids before advancing your diet. Call your primary care provider to make arrangements for follow-up appointment to be seen in the next 3 to 5 days. Discussed the possibility of obtaining consultations with ear nose and throat and neurology specialist if your dizziness persists. Prescriptions: Meclizine HCl 25 mg [Antivert 25 mg] 25 mg PO Q8H PRN #10 tablet PRN Reason: Dizziness
[2024-11-09 11:02] VITALS: TEMP 98
[2024-11-09] MEDS ORDERED: ANTIVERT 25 MG ONE (11:23)
[2024-11-09] MEDS ORDERED: Zofran 4 MG/2 ML VIAL ONE (11:23)
[2024-11-09] MEDS: ANTIVERT 25 MG PO ONE (11:25)
[2024-11-09] MEDS: Zofran 4 MG/2 ML VIAL IV ONE (11:26)
[2024-11-09 11:36] LABS: Absolute Neutrophil Ct (ANC) 4.49 x10^3/uL (1.78-5.38); BASOPHIL % 0.3 % (0.2-1.2); Basophil (Absolute #) 0.02 x10^3/uL (0.01-0.08); Eosinophil % 3.4 % (0.8-7.0); Eosinophil (Absolute #) 0.23 x10^3/uL (0.04-0.54); Hematocrit 46.6 % (40.1-51.0); Hemoglobin 15.9 g/dL (13.7-17.5); IMMATURE GRAN # 0.02 x10^3u/L (0.001-0.031); IMMATURE GRAN % 0.3 % (0.001-0.429); Lymphocyte (Absolute #) 1.27 x10^3/uL (1.32-3.57); Lymphocytes % 18.9 % (21.8-53.1); Mean Cell Volume 94.3 fL (79.0-92.2); Mean Corpuscular Hemoglobin 32.2 pg (25.7-32.2); Mean Corpuscular Hgb Concent. 34.1 g/dL (32.3-36.5); Mean Platelet Volume 9.3 fL (9.4-12.4); Monocytes % 10.4 % (5.3-12.2); Neutrophil % 66.7 % (34.0-67.9); Platelet Count 204 x10^3/uL (163-337); Red Blood Count 4.94 x10^6/uL (4.63-6.08); Red Cell Distribution Width 12.8 % (11.6-14.4); White Blood Count 6.7 x10^3/uL (4.23-9.07)
[2024-11-09 11:45] LABS: Appearance Clear (Clear); Bacteria None Seen /HPF (None Seen); Bilirubin Negative (Negative); Blood Negative (Negative); Epithelial Cells None Seen /HPF (None Seen); Glucose, Urine Negative (Negative); Hyaline Casts NONE SEEN /LPF (0-2); Ketones Negative (Negative); Leukocyte Esterase Negative (Negative); Nitrite Negative (Negative); Protein,Urine Dip Negative (Negative); RBC 0-2 /HPF (0-5); Urobilinogen 0.2 mg/dL (0.2); WBC 0-2 /HPF (0-5)
[2024-11-09 11:49] LABS: ALBUMIN 4.3 g/dL (3.5-5.0); ALKALINE PHOSPHATASE 120 U/L (38-126); ANION GAP 13.2 MEQ/L (5-15); BLOOD UREA NITROGEN 12 mg/dL (9-20); CHLORIDE 102 mmol/L (98-107); Calcium 8.8 mg/dL (8.4-10.2); Carbon Dioxide 27 mmol/L (22-30); Creatinine 1 0.68 mg/dL (0.66-1.25); EST GLOMERULAR FILTRATION RATE 104.5 ML/MIN; ETHYL ALCOHOL < 10 mg/dL (0-10); Glucose 98 mg/dL (74-106); MAGNESIUM 1.8 mg/dL (1.6-2.3); Potassium 3.4 mmol/L (3.5-5.1); SGOT/AST 49 U/L (17-59); SGPT/ALT 55 U/L (0-50); SODIUM 140 mmol/L (135-145); Total Protein 6.8 g/dL (6.3-8.2)
--- NOTE | 2024-11-09 12:06 | XRAY ---
Indication: Dizziness. Multiple contiguous axial images obtained through the head without contrast. Comparison: June 11, 2023 Normal appearing brain parenchyma, ventricles, and bony calvarium for patient's age. Visualized paranasal sinuses and mastoid air cells are clear. Impression: Continued normal CT head without contrast exam.
[2024-11-09 12:19] VITALS: BP 110/65; PULSE 71; RESP 13; O2SAT 97
== END 2024-11-09 12:43 | disposition home or self-care (01) ==
LOC: ED 10:11
DX: R42 Dizziness and giddiness (principal); Z79.02 Long term (current) use of antithrombotics/antiplatelets; Z79.899 Other long term (current) drug therapy
CPT/HCPCS: 36415; 70450; 80053; 81001; 82077; 82947; 83735; 84484; 85025; 93005; 93041; 96374; 99284; 99285; J2405; A9270-GY